=== PATIENT | female | born 1955 | race Caucasian/White ===

== ENCOUNTER 2024-06-11 07:47 | Outpatient (RCR) | payer MEDICARE, MEDICAID, SELFPAY ==
[2024-06-11 08:50] VITALS: BMI 15.9
== END 2024-08-27 10:29 | disposition home or self-care (01) ==
LOC: ANHWOC 07:47
PROVIDERS: PCP Family Medicine
DX: Z43.2 Encounter for attention to ileostomy (principal)
CPT/HCPCS: 99204; G0463